=== PATIENT | female | born 1945 | race Caucasian/White ===

== ENCOUNTER → 2024-03-23 | Outpatient (CLI) | payer OTHER | END | disposition home or self-care (01) | LOC: RESCLI 12:41 | PROVIDERS: ATTEND Internal Medicine | DX: H02.839 Dermatochalasis of unspecified eye, unspecified eyelid (principal); Z79.899 Other long term (current) drug therapy; Z88.8 Allergy status to other drugs, medicaments and biological substances; Z98.890 Other specified postprocedural states ==